=== PATIENT | female | born 1960 | race Native Hawaiian/Other Pacific Islander ===

== ENCOUNTER 2016-09-12 16:22 | Emergency (ER) | payer MEDICARE, MEDICAID ==
[2016-09-12 16:23] VITALS: BMI 42.2
--- NOTE | 2016-09-12 17:55 | C.PDOC ---
History Of Present Illness 56 year old female presents to the emergency department with complaints of urinary retention and a UTI beginning this morning. Patient notes she has gone into retention before and saw her urologist Dr. Yung who placed her on antibiotics but is unable to pass urine today. She denies nausea, vomiting, or fever. Time Seen by Provider: 09/12/16 17:33 Chief Complaint (Nursing): Female Genitourinary History Per: Patient History/Exam Limitations: no limitations Onset/Duration Of Symptoms: Hrs Current Symptoms Are (Timing): Still Present Associated Symptoms: denies: Fever, Chills, Nausea, Vomiting Recent travel outside of the [place]: No Abnormal Vaginal Bleeding: No Past Medical History Reviewed: Historical Data, Nursing Documentation, Vital Signs Vital Signs: Last Vital Signs Temp 98 F 09/12/16 16:44 Pulse 91 H 09/12/16 16:44 Resp 20 09/12/16 16:44 BP 134/86 09/12/16 16:44 Pulse Ox 97 09/12/16 18:12 - Medical History PMH: Anemia, Anxiety, Diabetes, HTN, Hypercholesterolemia, Hyperlipidemia, Chronic Kidney Disease Comment Only: Sleep Apnea (HAD TEST NO RESULTS YET) Surgical History: Cholecystectomy, Endoscopy, Denies: Pacemaker - [facility] Procedures CYSTOSCOPY NEC (12/22/13) DILATION OF URETHRA, ENDO (04/15/16) ENDOSC POLYPECTOMY OF LG INTEST (09/28/13) ESOPHAGOGASTRODUODENOSCOPY [EGD] W/CLOSED BIOPSY (09/28/13) INSERT INDWELLING CATH (01/26/14) URETHRAL DILATION (12/22/13) VACCINATION NEC (12/22/13) Family History: States: Unknown Family Hx - Social History Hx Tobacco Use: No Hx Alcohol Use: No Hx Substance Use: No - Immunization History Hx Tetanus Toxoid Vaccination: No Hx Influenza Vaccination: Yes Hx Pneumococcal Vaccination: No Review Of Systems Constitutional: Negative for: Fever, Chills Cardiovascular: Negative for: Chest Pain Respiratory: Negative for: Shortness of Breath Gastrointestinal: Negative for: Nausea, Vomiting, Abdominal Pain, Diarrhea Genitourinary: Positive for: Other (urinary retention and current UTI ) Physical Exam - Physical Exam Appears: Non-toxic, No Acute Distress Skin: Warm, Dry Head: Atraumatic Eye(s): bilateral: Normal Inspection, PERRL, EOMI Oral Mucosa: Moist Neck: Supple Chest: Symmetrical, No Deformity Cardiovascular: Rhythm Regular Respiratory: Normal Breath Sounds, No Rhonchi, No Wheezing Gastrointestinal/Abdominal: Soft, Tenderness (suprapubic tenderness), No Distention, No Guarding, No Rebound Neurological/Psych: Oriented x3 ED Course And Treatment O2 Sat by Pulse Oximetry: 97 (room air ) Pulse Ox Interpretation: Normal Progress Note: Chahal cath inserted > 900 ml bucky urine Reassessment Condition: Improved Medical Decision Making Medical Decision Making: Patient currently on antibiotics for UTI Disposition Counseled Patient/Family Regarding: Diagnosis, Need For Followup - Disposition Referrals: Jabari Carson MD [Staff Provider] - Disposition: HOME/ ROUTINE Disposition Time: 18:00 Condition: STABLE Additional Instructions: Follow up with your PMD and urologist for further evaluation Instructions: Acute Urinary Retention in Women (ED) Forms: [employer] (French) - POA Present On Arrival: None - Clinical Impression Clinical Impression: UTI (lower urinary tract infection), Urine retention - Scribe Statement The provider has reviewed the documentation as recorded by the Scribingrid Monreal All medical record entries made by the Froylanibingrid were at my direction and personally dictated by me. I have reviewed the chart and agree that the record accurately reflects my personal performance of the history, physical exam, medical decision making, and the department course for this patient. I have also personally directed, reviewed, and agree with the discharge instructions and disposition.
[2016-09-12 18:04] LABS: SQUAMOUS EPITHIAL < 1 /hpf (0-5); URINE BACTERIA OCC (<OCC); URINE BILIRUBIN NEGATIVE (NEGATIVE); URINE BLOOD 1+ (NEGATIVE); URINE CLARITY Clear (Clear); URINE COLOR Yellow (YELLOW); URINE GLUCOSE (UA) NORMAL (Normal); URINE LEUKOCYTE ESTERASE 1+ Leu/uL (Negative); URINE NITRATE NEGATIVE (NEGATIVE); URINE PROTEIN 1+ mg/dL (NEGATIVE); URINE UROBILINOGEN NORMAL mg/dL (0.2-1.0)
[2016-09-12 18:43] VITALS: BP 114/72; PULSE 96; RESP 18; TEMP 98.2; O2SAT 99
== END 2016-09-12 18:25 | disposition home or self-care (01) ==
LOC: C.ER 16:22
DX: R33.9 Retention of urine, unspecified (principal); N39.0 Urinary tract infection, site not specified

== ENCOUNTER 2017-02-21 15:49 | Emergency (ER) | payer MEDICARE, MEDICAID ==
[2017-02-21 16:09] VITALS: BMI 43.2
--- NOTE | 2017-02-21 16:48 | C.PDOC ---
History Of Present Illness 56 yr old female with PMHx of urinary retention, presents to the ER for evaluation of increasing inability to urinate since morning. Patient denies fever, chills, chest pain, SOB, nausea, vomiting, abdominal pain, vaginal discharge, vaginal bleeding, weakness or numbness. Time Seen by Provider: 02/21/17 16:22 Chief Complaint (Nursing): Female Genitourinary History Per: Patient History/Exam Limitations: no limitations Onset/Duration Of Symptoms: Sudden Onset (since morning) Past Medical History Reviewed: Historical Data, Nursing Documentation, Vital Signs Vital Signs: Last Vital Signs Temp 98.4 F 02/21/17 16:09 Pulse 104 H 02/21/17 16:09 Resp 20 02/21/17 16:09 BP 147/92 H 02/21/17 16:09 Pulse Ox 100 02/21/17 18:17 - Medical History PMH: Anemia, Anxiety, Diabetes, HTN, Hypercholesterolemia, Hyperlipidemia, Chronic Kidney Disease Comment Only: Sleep Apnea (HAD TEST NO RESULTS YET) Surgical History: Cholecystectomy, Endoscopy, - [facility] Procedures CYSTOSCOPY NEC (12/22/13) DILATION OF URETHRA, ENDO (04/15/16) ENDOSC POLYPECTOMY OF LG INTEST (09/28/13) ESOPHAGOGASTRODUODENOSCOPY [EGD] W/CLOSED BIOPSY (09/28/13) INSERT INDWELLING CATH (01/26/14) URETHRAL DILATION (12/22/13) VACCINATION NEC (12/22/13) Family History: States: No Known Family Hx - Social History Hx Tobacco Use: No Hx Alcohol Use: No Hx Substance Use: No - Immunization History Hx Tetanus Toxoid Vaccination: No Hx Influenza Vaccination: Yes Hx Pneumococcal Vaccination: No Review Of Systems Except As Marked, All Systems Reviewed And Found Negative. Constitutional: Negative for: Fever, Chills Cardiovascular: Negative for: Chest Pain Respiratory: Negative for: Shortness of Breath Gastrointestinal: Negative for: Nausea, Vomiting, Abdominal Pain Genitourinary: Positive for: Other ((+) urinary retention). Negative for: Vaginal Discharge, Vaginal Bleeding Neurological: Negative for: Weakness, Numbness Physical Exam - Physical Exam Appears: Non-toxic, No Acute Distress Skin: Warm, Dry, No Rash Head: Atraumatic, Normacephalic Oral Mucosa: Moist Cardiovascular: Rhythm Regular, No Murmur Respiratory: Normal Breath Sounds, No Rales, No Rhonchi, No Stridor, No Wheezing Gastrointestinal/Abdominal: Soft, Tenderness (suprapubic), No Guarding, No Rebound Back: Normal Inspection, No CVA Tenderness Extremity: Normal ROM, No Swelling Neurological/Psych: Oriented x3, Normal Speech, Normal Motor, Normal Sensation ED Course And Treatment - Laboratory Results Result Diagrams: 02/21/17 17:35 02/21/17 17:35 O2 Sat by Pulse Oximetry: 100 (RA) Pulse Ox Interpretation: Normal Progress Note: On reeval patient reports improvement of symptoms. Chahal inserted and leg bag applied. Patient is diagnosed with UTI and instructed to follow up with Dr. Fiore. Medical Decision Making Medical Decision Making: IMPRESSION: Urinary retention PLAN: * CBC * CMP * Urinalysis * Chahal Disposition Counseled Patient/Family Regarding: Studies Performed, Diagnosis, Need For Followup, Rx Given - Disposition Referrals: Jabari Carson MD [Staff Provider] - Disposition: HOME/ ROUTINE Disposition Time: 18:15 Condition: STABLE Additional Instructions: follow up with urologist in 2 days call to make an appointment take medication as prescribed return to ER if symptoms worsens or progress Prescriptions: Ciprofloxacin HCl [Cipro] 500 mg PO BID #14 tab Instructions: Urinary Tract Infection in Women (ED), Acute Urinary Retention in Women (ED) Forms: [facility] (Samoan), General Discharge Instructions - Clinical Impression Clinical Impression: Urinary retention, UTI (lower urinary tract infection) - Scribe Statement The provider has reviewed the documentation as recorded by the Froylanibingrid Lopez Provider Attestation: All medical record entries made by the Bethany were at my direction and personally dictated by me. I have reviewed the chart and agree that the record accurately reflects my personal performance of the history, physical exam, medical decision making, and the department course for this patient. I have also personally directed, reviewed, and agree with the discharge instructions and disposition.
[2017-02-21 17:38] LABS: BASO % 0.5 % (0.0-2.0); EOS # 0.1 K/uL (0.0-0.7); EOS % 0.7 % (0.0-4.0); HEMOGLOBIN 14.6 g/dL (11.0-16.0); LYMPH # 1.2 K/uL (1.0-4.3); LYMPH % 12.1 % (20.0-40.0); MEAN CELL VOLUME 89.4 fL (81.0-99.0); MEAN CORPUSCULAR HEMOGLOBIN 30.2 pg (27.0-31.0); MEAN CORPUSCULAR HGB CONC 33.7 g/dL (33.0-37.0); MEAN PLATELET VOLUME 7.7 fL (7.2-11.7); MONO # 0.4 K/uL (0.0-0.8); MONO % 4.4 % (0.0-10.0); NEUT # 8.3 K/uL (1.8-7.0); NEUT % 82.3 % (50.0-75.0); RBC 4.84 Mil/uL (3.80-5.20); RED CELL DISTRIBUTION WIDTH 12.8 % (11.5-14.5); WHITE BLOOD COUNT 10.1 K/uL (4.8-10.8)
[2017-02-21 17:44] LABS: URINE BILIRUBIN NEGATIVE (NEGATIVE); URINE BLOOD 2+ (NEGATIVE); URINE CLARITY Clear (Clear); URINE COLOR Yellow (YELLOW); URINE GLUCOSE (UA) 1+ mg/dL (Normal); URINE LEUKOCYTE ESTERASE 2+ Leu/uL (Negative); URINE NITRATE NEGATIVE (NEGATIVE); URINE PROTEIN 1+ mg/dL (NEGATIVE); URINE UROBILINOGEN NORMAL mg/dL (0.2-1.0)
[2017-02-21 17:49] LABS: ALB/GLOB RATIO 1.1 (1.0-2.1); ALBUMIN 4.2 g/dL (3.5-5.0); CALCIUM 8.6 mg/dl (8.6-10.4)
[2017-02-21 19:13] VITALS: BP 156/87; PULSE 95; RESP 18; TEMP 97.9; O2SAT 99
== END 2017-02-21 19:05 | disposition home or self-care (01) ==
LOC: C.ER 15:49
DX: R33.9 Retention of urine, unspecified (principal); N39.0 Urinary tract infection, site not specified

== ENCOUNTER 2017-10-10 10:21 | Emergency (ER) | payer MEDICARE, MEDICAID ==
[2017-10-10 10:21] VITALS: BMI 43.2
[2017-10-10 10:34] VITALS: TEMP 98.3
--- NOTE | 2017-10-10 10:56 | C.PDOC ---
History Of Present Illness 57-year-old female presents to the ED complaining of difficulty urinating and dysuria for 1 week. She reports that she is still able to urinate but feels she cannot void the full urinary volume. Patient states she wants her kidneys to be "checked for infection." Otherwise she denies any fever, chills, hematuria, abdominal pain, nausea, vomiting, or vaginal bleeding. Patient reports a history of urethral stricture. Time Seen by Provider: 10/10/17 10:44 Chief Complaint (Nursing): Female Genitourinary History Per: Patient History/Exam Limitations: no limitations Onset/Duration Of Symptoms: Days Current Symptoms Are (Timing): Still Present Associated Symptoms: Urinary Symptoms Past Medical History Reviewed: Historical Data, Nursing Documentation, Vital Signs Vital Signs: Last Vital Signs Temp 98.3 F 10/10/17 10:39 Pulse 83 10/10/17 12:16 Resp 16 10/10/17 12:16 BP 115/69 10/10/17 12:16 Pulse Ox 96 10/10/17 12:16 - Medical History PMH: Anemia, Anxiety, Diabetes, HTN, Hypercholesterolemia, Hyperlipidemia, Chronic Kidney Disease Comment Only: Sleep Apnea (HAD TEST NO RESULTS YET) Surgical History: Cholecystectomy, Endoscopy, Denies: Pacemaker - [facility] Procedures CYSTOSCOPY NEC (12/22/13) DILATION OF URETHRA, ENDO (04/15/16) ENDOSC POLYPECTOMY OF LG INTEST (09/28/13) ESOPHAGOGASTRODUODENOSCOPY [EGD] W/CLOSED BIOPSY (09/28/13) INSERT INDWELLING CATH (01/26/14) URETHRAL DILATION (12/22/13) VACCINATION NEC (12/22/13) Family History: States: Unknown Family Hx - Social History Hx Tobacco Use: No Hx Alcohol Use: No Hx Substance Use: No - Immunization History Hx Tetanus Toxoid Vaccination: No Hx Influenza Vaccination: Yes Hx Pneumococcal Vaccination: No Review Of Systems Constitutional: Negative for: Fever, Chills Gastrointestinal: Negative for: Nausea, Vomiting, Abdominal Pain Genitourinary: Positive for: Dysuria, Other (difficulty urinating). Negative for: Incontinence, Hematuria, Vaginal Bleeding Neurological: Negative for: Weakness, Numbness Physical Exam - Physical Exam Appears: Well, Non-toxic, No Acute Distress Skin: Warm, Dry, No Rash Head: Atraumatic, Normacephalic Eye(s): bilateral: Normal Inspection, EOMI Oral Mucosa: Moist Neck: Normal ROM Chest: Symmetrical Cardiovascular: Rhythm Regular, No Murmur Respiratory: Normal Breath Sounds, No Rales, No Rhonchi, No Wheezing Gastrointestinal/Abdominal: Bowel Sounds (active), Soft, No Tenderness, No Distention Back: Normal Inspection, No CVA Tenderness, No Vertebral Tenderness Extremity: Bilateral: Atraumatic, Normal Color And Temperature, Normal ROM Neurological/Psych: Oriented x3, Normal Speech Gait: Steady ED Course And Treatment O2 Sat by Pulse Oximetry: 98 (room air) Pulse Ox Interpretation: Normal Medical Decision Making Medical Decision Making: Impression: 57 year old with difficulty urinating Initial Plan: --Bladder scan --Urinalysis --Urine culture Bladder scan shows 750cc. RN inserted walton. Patient felt relief. Urine sent to lab and shows no pyuria. Disposition Counseled Patient/Family Regarding: Diagnosis, Need For Followup - Disposition Referrals: Jabari Carson MD [Staff Provider] - Disposition: HOME/ ROUTINE Disposition Time: 12:15 Condition: GOOD Additional Instructions: Please follow up with urologist in 2 days for further evaluation Instructions: Urinary Retention (DC) Forms: [employer] (Lithuanian) - POA Present On Arrival: None - Clinical Impression Clinical Impression: Urinary retention - PA / [employer] / Resident Statement MD/DO has reviewed & agrees with the documentation as recorded. - Scribe Statement The provider has reviewed the documentation as recorded by the Scribe (Annalise Arroyo) All medical record entries made by the Scribe were at my direction and personally dictated by me. I have reviewed the chart and agree that the record accurately reflects my personal performance of the history, physical exam, medical decision making, and the department course for this patient. I have also personally directed, reviewed, and agree with the discharge instructions and disposition.
[2017-10-10 11:43] LABS: SQUAMOUS EPITHIAL < 1 /hpf (0-5); URINE BACTERIA RARE (<OCC); URINE BILIRUBIN NEGATIVE (NEGATIVE); URINE BLOOD NEGATIVE (NEGATIVE); URINE CLARITY Hazy (Clear); URINE COLOR Yellow (YELLOW); URINE GLUCOSE (UA) 1+ mg/dL (Normal); URINE PROTEIN 2+ mg/dL (NEGATIVE); URINE UROBILINOGEN NORMAL mg/dL (0.2-1.0)
[2017-10-10 11:53] LABS: URINE AMORPHOUS SEDIMENT FEW /ul (<OCC); URINE LEUKOCYTE ESTERASE 1+ Leu/uL (Negative)
[2017-10-10 12:18] VITALS: BP 115/69; PULSE 83; RESP 16
[2017-10-10 15:46] VITALS: O2SAT 98
== END 2017-10-10 12:16 | disposition home or self-care (01) ==
LOC: C.ER 10:21
DX: R33.9 Retention of urine, unspecified (principal)